=== PATIENT | female | born 1990 | race Caucasian/White ===

== ENCOUNTER → 2018-03-09 | Day surgery (SDC) | payer OTHER ==
[~2018-03-09] VITALS: Ht 154.9 cm; Wt 65.3 kg
[~2018-03-09] MED LIST: NASONEX0.05 MG/Ac NAS
[2018-03-09 12:18] LABS: ABSOLUTE BASOPHIL COUNT 0 /CUMM (0.0-0.2); ABSOLUTE EOSINOPHIL COUNT 0.1 /CUMM (0.0-0.7); ABSOLUTE GRANULOCYTE CT 4.7 /CUMM (1.4-6.5); ABSOLUTE LYMPH COUNT 2.1 /CUMM (1.2-3.4); ABSOLUTE MONOCYTE COUNT 0.4 /CUMM (0.10-0.60); BASOPHIL % 0.3 % (0.0-2.0); EOSINOPHIL % 1.3 % (0-5); GRANULOCYTE % 64.7 % (42.2-75.2); HEMATOCRIT 40.9 % (37-47); MEAN CORPUSCULAR HGB 29.1 PG (27.0-31.0); MEAN CORPUSCULAR VOLUME 85.8 FL (81.0-99.0); MEAN PLATELET VOLUME 8.6 FL (7.4-10.4); PLATELET COUNT 334 /CUMM (130-400); RBC DISTRIBUTION WIDTH 13.3 % (11.5-14.5); RED BLOOD CELL CT 4.77 /CUMM (4.20-5.40); WHITE BLOOD CELL COUNT 7.3 /CUMM (4.8-10.8)
--- NOTE | 2018-03-09 13:48 | Operative Report ---
Operative/Inv Procedure Report Surgery Date: 03/09/18 Name of Procedure: LEEP Pre-Operative Diagnosis: ADAM-3 Post-Operative Diagnosis: Same Estimated Blood Loss: scant Surgeon/[employer]ist: Judit CARRILLO,Ehsan Em Anesthesia: tiva Specimens: cone bx specimen marked at 3 oclock Complications: none Condition: good Operative Indication: cin3 Operative/Procedure Note Note: The patient was brought to the operating room timeout was conducted while the patient was awake. After the induction of anesthesia patient was prepped and draped in usual sterile fashion and positioned in low stirrups. She was grounded and insulated speculum was placed in the vagina cervix was infiltrated with 5cc of a dilute solution of lidocaine with epinephrine. The endocervical canal was noted to be straight. The cervix was painted with Lugol's solution out-lining in the area of dysplasia at 11 oclock. A large loop electrode was utilized to remove the transformation zone this was then sent to pathology for examination. Hemostasis was achieved with electrocautery followed by Monsel solution once excellent hemostasis was achieved the speculum was removed patient was awakened and moved to the recovery room in good condition sponge instument and needle counts were correct 3 Discharge Disposition: Same Day Admissions
== END ==
LOC: STS 01:06
PROVIDERS: Obstetrics & Gynecology
DX: D06.0 Carcinoma in situ of endocervix (principal); R87.810 Cervical high risk human papillomavirus (HPV) DNA test positive
CPT/HCPCS: 36415; 81025; J2250